=== PATIENT | male | born 1990 | race American Indian/Alaskan Native ===

== ENCOUNTER 2019-01-24 15:00 | Emergency (ER) | payer OTHER, MEDICAID ==
[2019-01-24 15:06] VITALS: BP 118/58
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
--- NOTE | 2019-01-24 15:22 | XRay Report ---
CERVICAL SPINE, 3 views: History: Neck pain. Findings: The vertebral bodies, disk spaces, posterior elements and prevertebral soft tissues are unremarkable. The dens is intact. No acute fracture or malalignment is identified. Impression: 1. No evidence for acute injury to the cervical spine.
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
== END 2019-01-24 17:23 | disposition home or self-care (01) ==
LOC: ED 15:00
DX: S16.1XXA Strain of muscle, fascia and tendon at neck level, initial encounter (principal); F20.9 Schizophrenia, unspecified; F29 Unspecified psychosis not due to a substance or known physiological condition; F17.200 Nicotine dependence, unspecified, uncomplicated; Z79.899 Other long term (current) drug therapy; V89.2XXA Person injured in unspecified motor-vehicle accident, traffic, initial encounter; Y93.89 Activity, other specified; Y99.8 Other external cause status; Y92.410 Unspecified street and highway as the place of occurrence of the external cause
CPT/HCPCS: 72040; 99283

== ENCOUNTER 2019-07-27 13:18 | Emergency (ER) | payer MEDICAID, OTHER ==
[2019-07-27 13:26] VITALS: BP 102/65
[2019-07-27] MEDS ORDERED: DECADRON IM ONE (15:05)
--- NOTE | 2019-07-27 15:05 | Emergency Department Report ---
ED General Adult HPI - General Chief complaint: Animal Bite Stated complaint: FOREARM BEE STING/PAIN Time Seen by Provider: 07/27/19 14:45 Source: patient Mode of arrival: Ambulatory Limitations: No Limitations - History of Present Illness Initial comments: This is a 29-year-old -[place] male who presents to the emergency room with erythematous area to the right anterior forearm from a bee sting 2 days ago. Patient reports pruritus and erythema. He has not taken anything for symptomatic relief. Past medical history of schizophrenia and psychosis. He denies difficulty swallowing, shortness of breath, numbness or tingling, paresthesias, or weakness. Onset/Timin -: days(s) Location: upper extremity (right) Radiation: non-radiation Severity scale (0 -10): 5 Quality: aching Consistency: intermittent Improves with: none Worsens with: none Associated Symptoms: other (pruritus) Treatments Prior to Arrival: none - Related Data Home Medications Medication Instructions Recorded Confirmed Last Taken risperiDONE [Risperdal] 2 mg PO DAILY 09/19/18 09/19/18 Unknown Previous Rx's Medication Instructions Recorded Last Taken Type Cyclobenzaprine [Flexeril] 10 mg PO QHS PRN #20 tablet 01/24/19 Unknown Rx Ibuprofen [Motrin] 800 mg PO Q8HR #30 tablet 01/24/19 Unknown Rx Famotidine [Pepcid] 20 mg PO BID #20 tablet 07/27/19 Unknown Rx diphenhydrAMINE [Benadryl CAP] 25 mg PO Q8HR PRN #15 capsule 07/27/19 Unknown Rx methylPREDNISolone [Medrol 4MG 4 mg PO DAILY #1 tab.ds.pk 07/27/19 Unknown Rx DOSEPAK (21 tabs)] Allergies Allergy/AdvReac Type Severity Reaction Status Date / Time No Known Allergies Allergy Verified 01/24/19 15:02 ED Review of Systems ROS: Stated complaint: FOREARM BEE STING/PAIN Other details as noted in HPI Constitutional: denies: chills, fever Respiratory: denies: cough, shortness of breath, wheezing Cardiovascular: denies: chest pain, palpitations Gastrointestinal: denies: abdominal pain, nausea, diarrhea Musculoskeletal: denies: back pain, joint swelling, arthralgia Skin: pruritus, other (erythematous area on right forearm). denies: rash, lesions Neurological: denies: headache, weakness, paresthesias Psychiatric: denies: anxiety, depression ED Past Medical Hx - Past Medical History Previous Medical History?: Yes Hx Psychiatric Treatment: Yes (schizophrenia, psychosis) Additional medical history: UNK, pt not forthcoming with medical info - Surgical History Past Surgical History?: Yes Additional Surgical History: UNK, pt not forthcoming with medical info - Social History Smoking Status: Current Every Day Smoker Substance Use Type: None - Medications Home Medications: Home Medications Medication Instructions Recorded Confirmed Last Taken Type risperiDONE [Risperdal] 2 mg PO DAILY 09/19/18 09/19/18 Unknown History Cyclobenzaprine [Flexeril] 10 mg PO QHS PRN #20 tablet 01/24/19 Unknown Rx Ibuprofen [Motrin] 800 mg PO Q8HR #30 tablet 01/24/19 Unknown Rx Famotidine [Pepcid] 20 mg PO BID #20 tablet 07/27/19 Unknown Rx diphenhydrAMINE [Benadryl CAP] 25 mg PO Q8HR PRN #15 capsule 07/27/19 Unknown Rx methylPREDNISolone [Medrol 4MG 4 mg PO DAILY #1 tab.ds.pk 07/27/19 Unknown Rx DOSEPAK (21 tabs)] ED Physical Exam - General Limitations: No Limitations General appearance: alert, in no apparent distress - Respiratory Respiratory exam: Present: normal lung sounds bilaterally. Absent: respiratory distress - Cardiovascular Cardiovascular Exam: Present: regular rate, normal rhythm. Absent: systolic murmur, diastolic murmur, rubs, gallop - GI/Abdominal GI/Abdominal exam: Present: soft, normal bowel sounds - Expanded Upper Extremity Exam Right Forearm Wrist exam: Present: full ROM, erythema (2-3 cm area, blanchable, nontender). Absent: tenderness, swelling, abrasion, laceration, ecchymosis, deformity, crepidus, dislocation, tenderness over anatomical snuff box, pain with axial thumb loading Hand Wrist exam: Present: normal inspection, full ROM Neuro motor exam: Present: wrist extension intact, thumb opposition intact, thumb IP flexion intact, thumb adduction intact, fingers 2-5 abduction intact Neurosensory exam: Present: radial nerve intact, ulnar nerve intact, median nerve intact Vascular: Present: normal capillary refill, radial pulse - Neurological Exam Neurological exam: Present: alert, oriented X3 - Psychiatric Psychiatric exam: Present: normal affect, normal mood - Skin Skin exam: Present: warm, dry, intact, normal color. Absent: rash ED Course Vital Signs 07/27/19 13:21 Temperature 98.8 F Pulse Rate 102 H Respiratory 18 Rate Blood Pressure 102/65 O2 Sat by Pulse 95 Oximetry ED Medical Decision Making - Medical Decision Making Patient was examined by me. Patient is nontoxic appearing and stable. Vitals are normal. There is a 2-3 cm erythematous area to right anterior forearm, nontender. No signs of stinger left in area. Given dexamethasone 8 mg IM. Start medrol pack, Pepcid, and benadryl. Follow up with PCP or return to the ER with worsening symptoms. Patient discharged home in stable condition. Critical care attestation.: If time is entered above; I have spent that time in minutes in the direct care of this critically ill patient, excluding procedure time. ED Disposition Clinical Impression: Insect bite Qualifiers: Encounter type: initial encounter Site of insect bite: forearm Laterality: right Qualified Code(s): S50.861A - Insect bite (nonvenomous) of right forearm, initial encounter; W57.XXXA - Bitten or stung by nonvenomous insect and other nonvenomous arthropods, initial encounter Disposition: DC-01 TO HOME OR SELFCARE Is pt being admited?: No Does the pt Need Aspirin: No Condition: Stable Instructions: Insect Bite or Sting (ED) Additional Instructions: Complete full course of steroids as prescribed. Follow up with a primary care doctor or return to the emergency room if difficulty breathing or worsening symptoms. Prescriptions: diphenhydrAMINE [Benadryl CAP] 25 mg PO Q8HR PRN #15 capsule PRN Reason: Itching methylPREDNISolone [Medrol 4MG DOSEPAK (21 tabs)] 4 mg PO DAILY #1 tab.ds.pk Famotidine [Pepcid] 20 mg PO BID #20 tablet Referrals: [facility] [Outside] - 3-5 Days [facility] [Outside] - 3-5 Days [facility] [Outside] - 3-5 Days Time of Disposition: 15:08
== END 2019-07-27 15:39 | disposition home or self-care (01) ==
LOC: ED 13:18
DX: S50.861A Insect bite (nonvenomous) of right forearm, initial encounter (principal); F20.9 Schizophrenia, unspecified; F17.200 Nicotine dependence, unspecified, uncomplicated; Z79.899 Other long term (current) drug therapy; X58.XXXA Exposure to other specified factors, initial encounter; Y93.89 Activity, other specified; Y92.89 Other specified places as the place of occurrence of the external cause; Y99.8 Other external cause status
CPT/HCPCS: 96372; 99282; J1100